=== PATIENT | male | born 1935 | race Caucasian/White ===

== ENCOUNTER 2019-10-05 06:10 | Day surgery (SDC) | payer MEDICARE, BC ==
[2019-10-03 14:34] VITALS: BMI 41.1
[~2019-10-05 06:10] MED LIST: DEXAMETHASONE SOD PHOSPHATE 10 MG/ML 1 ML VIAL IV ONE; LACTATED RINGERS 1,000 ML IV SCH; LIDOCAINE 1% 20 ML VIAL (10MG/ML) FOR IV START INTRADERMA PRN; MOXIFLOXACIN HCL 0.5% DROPS 3 ML BTL OP ONE; ONDANSETRON 4 MG/2 ML VIAL IVP ONE; TETRACAINE 0.5% OPHTH (PF) DROPS 4 ML BTL OP ONE; TIMOLOL 0.5% OPHTH DROPS 5 ML BTL OP ONE
[2019-10-05] MEDS: PHENYLEPHRINE 2.5% OPHTH DRP 2ML OP NR ×4 (06:30→06:44)
[2019-10-05] MEDS: CYCLOPENTOLATE 1% OPHTH SOLN 2 ML BTL OP ONE ×3 (06:35→06:47)
[2019-10-05 06:38] VITALS: TEMP 98
[2019-10-05 06:38] LABS: Glucose,Whole Blood 149 mg/dL (75-99)
[2019-10-05] MEDS ORDERED: MIDAZOLAM 2 MG/2 ML VIAL ONE (07:30)
[2019-10-05] MEDS ORDERED: methylPREDNISolone SOD SUCCI 125 MG/2 ML VIAL ONE (07:30)
[2019-10-05] MEDS ORDERED: fentaNYL (PF) 50 MCG/ML 2 ML AMP ONE (07:30)
[2019-10-05] MEDS ORDERED: BALANCED SALT IRRIG SOLN COMB2 15 ML IRRIG.SOLN INTRAOCULA ONE (07:48)
[2019-10-05] MEDS ORDERED: LIDOCAINE 1% (PF) 10MG/ML VIAL SQ ONE (07:48)
[2019-10-05] MEDS ORDERED: EPINEPHrine (PF) 0.3 ML in BALANCED SALT IRRIG SOLN COMB2 500 ML IRRIGATION ONE (07:50)
[2019-10-05] MEDS ORDERED: HYALURONATE SODIUM INTRAOCULAR 1 EACH SYRINGE (12MG/ML) INTRAOCULA ONE (07:50)
[2019-10-05] MEDS ORDERED: TRIAMCINOLONE ACETONIDE (PF) 40 MG/ML 1ML VIAL INTRAOCULA ONE (07:58)
[2019-10-05] MEDS ORDERED: CHONDROITIN-SOD HYALURONATE 1 EACH SYRINGE (0.75 ML) INTRAOCULA ONE (08:02)
[2019-10-05] MEDS ORDERED: ACETYLCHOLINE CHLORIDE 10 MG/ML 2 ML KIT INTRAOCULA ONE (08:07)
[2019-10-05] MEDS ORDERED: FLUORESCEIN STRIPS 1 MG STRIP LEFT EYE ONE (08:11)
--- NOTE | 2019-10-05 08:14 | P.OP ---
Date of Procedure: 10/05/19 Preoperative Diagnosis: NS & CS & PSC Postoperative Diagnosis: same Procedure(s) Performed: PIOL, OS Implants: MX60 10.00 Anesthesia: MAC Surgeon: Salbador Aguilar Pathology: none sent Condition: stable Disposition: same day Indications for Procedure: blurry vision Operative Findings: small pc rent, used Triescence
[2019-10-05] MEDS ORDERED: hydrALAZINE HCL 20 MG/ML 1 ML VIAL IV ONE (08:31)
[2019-10-05] MEDS ORDERED: hydrALAZINE HCL 20 MG/ML 1 ML VIAL IVP ONE ×2 (08:53)
[2019-10-05 09:47] VITALS: BP 141/78; PULSE 77; RESP 18
--- NOTE | 2019-10-06 05:23 | OP ---
OPERATIVE REPORT DATE OF SURGERY: October 05, 2019. PROCEDURES: Phacoemulsification of cataract and intraocular lens implant of the left eye. PREOPERATIVE DIAGNOSES: Nuclear sclerosis, cortical sclerosis, posterior subcapsular cataract. 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 SURGEON: Dr. Salbador Aguilar. ANESTHESIA: Topical. ESTIMATED BLOOD LOSS: None. SPECIMEN TAKEN: None. NARRATIVE: After obtaining the appropriate consent, the patient was brought to the operating room there he was placed on cardiac monitoring, prepped and draped in the usual sterile manner. He was approached from his left temporal side and at the 5 o'clock position an MVR blade was used to create a paracentesis port. Through this opening 1% Xylocaine MPF 50:50 mix with balanced salt solution was injected into the anterior chamber. This was followed by stabilization of the anterior chamber with Amvisc. At the 3 o'clock position, a 2.5 mm keratome was used to create a self-sealing corneal flap incision in a Langerman's fashion. Through this opening, a cystotome was used to begin a continuous tear capsulorrhexis which was completed using the Utrata forceps. Hydrodissection and hydrodelineation of the lens was accomplished with balanced salt solution. It was noted, however, that utilizing the Binkhorst cannula, there were some difficulties attempting to create a hydrodissecting plane during the initial phase of the hydrodissection. Phacoemulsification lens utilizing phaco chop was accomplished in 31.08 seconds at 16% power. Additional Xylocaine MPF was instilled into the anterior chamber. This was followed by removal of the cortex under irrigation and aspiration. During the removal of this cortex, it was identified that immediately underneath the entrance wound for the instruments at the 3 o'clock position, there was a small circular posterior capsular rent which was approximately a 0.5 mm in diameter. Immediately, irrigation aspiration was stopped and Triesence was instilled to identify trailing vitreous out of the temporal incision. The majority that had presented itself beyond the wound to the eye was amputated using Vannas scissors and a Weck-Jennifer sponge. The balance of which that remained just within the anterior chamber was able to be swept back into the anterior chamber and then tamponaded using Viscoat. Irrigation and aspiration then continued in a more careful fashion without capturing any additional vitreous in the anterior chamber of the eye. Though posterior capsular cleaning was incomplete, it was considered adequate without any remaining nuclear materials within the lens area. Therefore, additional viscoelastic was then used to stabilize the capsular bag and an MX60E 10 diopter posterior chamber intraocular lens was inserted in the capsular bag without difficulty. The lens was positioned in such a way that the haptics were 90 degrees away from the capsular rent and the optic of the intraocular lens nicely covered the circular rent. The remaining viscoelastic was then removed under irrigation and aspiration. The eye was brought to normal intraocular pressure through the paracentesis port and the wound was checked for watertight integrity with a fluorescein strip. He then received 2 drops of 0.5% timolol followed by 2 drops of moxifloxacin, was then lightly patched and shielded in the usual manner. Additionally, during the course of the procedure, he received 100 mg of Solu-Medrol in his IV. There were no additional difficulties encountered during the course of the procedure. He tolerated the procedure well and was returned to outpatient recovery in good condition. MMELL / IJN: [id number] /
== END 2019-10-05 09:25 | disposition home or self-care (01) ==
LOC: OR 06:10
PROVIDERS: ATTEND Ophthalmology
DX: H25.812 Combined forms of age-related cataract, left eye (principal); E11.36 Type 2 diabetes mellitus with diabetic cataract; H00.026 Hordeolum internum left eye, unspecified eyelid; H00.023 Hordeolum internum right eye, unspecified eyelid; H52.13 Myopia, bilateral; H04.129 Dry eye syndrome of unspecified lacrimal gland; H52.223 Regular astigmatism, bilateral; H52.4 Presbyopia; E08.3293 Diabetes mellitus due to underlying condition with mild nonproliferative diabetic retinopathy without macular edema, bilateral; H54.40 Blindness, one eye, unspecified eye; I11.9 Hypertensive heart disease without heart failure; K21.9 Gastro-esophageal reflux disease without esophagitis; H91.90 Unspecified hearing loss, unspecified ear; M19.90 Unspecified osteoarthritis, unspecified site; E07.9 Disorder of thyroid, unspecified; J30.2 Other seasonal allergic rhinitis; H31.011 Macula scars of posterior pole (postinflammatory) (post-traumatic), right eye; H35.3120 Nonexudative age-related macular degeneration, left eye, stage unspecified; I25.10 Atherosclerotic heart disease of native coronary artery without angina pectoris; I49.9 Cardiac arrhythmia, unspecified; E78.5 Hyperlipidemia, unspecified; Z98.41 Cataract extraction status, right eye; Z96.1 Presence of intraocular lens; Z98.890 Other specified postprocedural states; Z95.1 Presence of aortocoronary bypass graft; Z96.651 Presence of right artificial knee joint; Z87.2 Personal history of diseases of the skin and subcutaneous tissue; Z79.899 Other long term (current) drug therapy; Z79.82 Long term (current) use of aspirin; Z79.891 Long term (current) use of opiate analgesic; Z79.4 Long term (current) use of insulin; Z86.73 Personal history of transient ischemic attack (TIA), and cerebral infarction without residual deficits; Z86.69 Personal history of other diseases of the nervous system and sense organs; Z86.19 Personal history of other infectious and parasitic diseases; Z80.1 Family history of malignant neoplasm of trachea, bronchus and lung; Z83.3 Family history of diabetes mellitus
CPT/HCPCS: 66984; V2632; J2250; J0360; J2930; J0171; J3010; J3300; J2001